=== PATIENT | male | born 1970 | race Caucasian/White ===

== ENCOUNTER 2018-06-20 09:00 | Day surgery (SDC) | payer OTHER ==
[~2018-06-20] VITALS: Ht 177.8 cm; Wt 98.0 kg
[~2018-06-20 09:00] MED LIST: AZULFIDINE500 MG PO; CYANOCOBAL1000 MCG/M IM; PLAQUENIL200 MG PO; VITAMIN D1000 UNI1 PO
--- NOTE | 2018-06-20 10:46 | NUR ---
PT IS RESTING, ALERT AND ORIENTED. HER HAS HAD MANY SCOPES AND EGD'S IN HIS LIFE. SEEMS AT EASE, NO REAL QUESTIONS. EXTENDED A BLESSING, WILL FOLLOW NEEDED
--- NOTE | 2018-06-20 12:47 | NUR ---
06/20/18 1247 Ivone Ochoa 1220 PATIENT ARRIVES TO PACU SLEEPING, AWAKENS WITH VERBAL STIMULI. RESP EVEN AND UNLABORED. DENIES PAIN OR NAUSEA. 1225 DR STEVENS AT BEDSIDE TALKING WITH PATIENT. 1230 PATIENT AWAKE, ANSWERS QUESTIONS APPROPRIATELY. DENIES PAIN OR NAUSEA. REPOSITIONS SELF TO BACK. HEAD OF BED ELEVATED. PATIENT DRINKING OJ. 1245 PATIENT CONTINUES TO DRINK JUICE. DENIES PAIN OR NAUSEA. RESP EVEN AND UNLABORED.
--- NOTE | 2018-06-20 22:37 | OR ---
[facility] [address], [place] [address] Signed DATE OF OPERATION: 06/20/2018 SURGEON: Deven Stevens MD PREOPERATIVE DIAGNOSES: 1. Longstanding gastroesophageal reflux, recurrent epigastric pain. 2. History of tubular adenoma at 40 cm, in 2016. POSTOPERATIVE DIAGNOSES: 1. Hiatal hernia with chronic esophagitis and mild gastritis. 2. Normal-appearing colon and ilium except for internal hemorrhoids. PROCEDURES PERFORMED: 1. Esophagogastroduodenoscopy with biopsy. 2. Total colonoscopy to cecum with intubation of ileum. ANESTHESIA: Intravenous sedation, fentanyl 200 mcg and Versed 12 mg (total). INDICATION: This 47-year-old white man is a patient of Braulio Anand DO at [facility]. The patient is known to me from the past having undergone colonoscopy in 2016, at which time he had a tubular adenoma at 40 cm, which was excised. He is having no colon symptoms at this time and has no family history of colon cancer. He does have recurrent reflux symptoms. He is taking no medications to manage at this time. He previously was on PPI medication with good result. He does not have dense distal dysphagia, though he does have some cervical dysphagia, possibly related to cervical spine problem that is well known at C4, C5, and C6. He is admitted at this time to undergo upper endoscopy and colonoscopy to better characterize the problem and for surveillance regarding the polyp. He understands the risks of bleeding, infection, perforation and wished to proceed. FINDINGS: Upper endoscopy demonstrated a hiatal hernia and chronic distal esophagitis without Rueda's epithelium and no sign of neoplasm proper. There was mild diffuse gastritis, but no ulceration or erosion. Duodenum is normal. On colonoscopy, there was no sign of recurrent polyp. No diverticula or colitis. Intubation of the ileum was accomplished without problem as well. DESCRIPTION OF PROCEDURE: Electronically Signed By: DEVEN STEVENS MD 06/20/18 2237 PATIENT NAME: RAHAT CLARK OPERATIVE REPORT DATE OF : 74 REPORT #: [id number] PHYSICIAN: DEVEN STEVENS MD PCP: GIRISH ANAND MD REPORT IS CONFIDENTIAL AND NOT TO BE RELEASED WITHOUT AUTHORIZATION [facility] [address], [place] [address] Signed The patient was brought to the endoscopy suite, given topical Hurricaine spray hypopharyngeal anesthesia, and placed in lateral decubitus position. With full cardiopulmonary monitoring, he was given intravenous sedation to the point of slurred speech and nystagmus. A bite block was placed. An Olympus video upper endoscope was passed in the hypopharynx. The vocal cords appeared normal. The scope was advanced to the esophagus throughout its length. It was normal, though there was mild chronic distal esophagitis, but no evidence of Rueda's epithelium. The scope was advanced to the stomach, which was insufflated with air. There was no sign of bile within the stomach. Rugal folds were normal as was the antral motility. The pylorus was normal. The scope was passed through it into the duodenum. The duodenum showed mild chronic inflammation, not much. Biopsies were obtained. The scope was withdrawn to the antrum where biopsies were obtained as there was a fine reticular diffuse gastritis. Retroflexed view showed a hiatal hernia, moderate in size. There was no sign of ulceration and scope was withdrawn to the distal esophagus after biopsies of the stomach for both RD and pathologic testing. The distal esophagus was biopsied. There was no evidence of Rueda's epithelium. Scope was further withdrawn and remaining esophagus was normal. Plans were then made for colonoscopy. Additional sedation was given as needed. Digital rectal examination showed internal and external hemorrhoidal changes. An Olympus video colonoscope was passed in the rectum and manipulated throughout the colon ultimately intubating the cecum itself. The ileocecal valve and appendiceal orifice were normal. Rather easily, the ileum could be intubated and passage of the scope with several centimeters into it showed it to be normal. Scope was withdrawn to the cecum, which also was normal. Careful withdrawal of scope showed no sign of other abnormality throughout the entire colon. Retroflexed view confirmed internal hemorrhoidal changes however. The scope was removed and the patient was taken to recovery room in good condition. CONCLUDING DIAGNOSES: 1. Hiatal hernia with chronic esophagitis, gastroesophageal reflux, and mild diffuse gastritis. We will recommend Prilosec 20 mg daily. 2. No evidence of recurrent colonic polyps and ileum was also normal. He does have internal hemorrhoidal changes, for which hemorrhoidal banding could be undertaken if bleeding should begin. PLAN: 1. Recommend Prilosec 20 mg daily. 2. Repeat colonoscopy in 10 years, sooner if clinically indicated. 3. High-fiber diet and if bleeding hemorrhoid should occur, consideration for hemorrhoidal banding in the office setting. Electronically Signed By: DEVEN STEVENS MD 06/20/18 3131 PATIENT NAME: RAHAT CLARK OPERATIVE REPORT DATE OF : 74 REPORT #: [id number] PHYSICIAN: DEVEN STEVENS MD PCP: GIRISH ANAND MD REPORT IS CONFIDENTIAL AND NOT TO BE RELEASED WITHOUT AUTHORIZATION [address] [address] Signed FOLLOWUP: He will return to the ongoing care by Dr. Girish Anand at [facility]. If there are adverse findings on pathology, we will see him back in the office as well. MD JACINDA Bonilla/TONIA /[id number] cc: Girish Anand MD Copies: GIRISH ANAND MD ~ Electronically Signed By: DEVEN STEVENS MD 06/20/18 2237 PATIENT NAME: RAHAT CLARK OPERATIVE REPORT DATE OF : 74 REPORT #: [id number] PHYSICIAN: DEVEN STEVENS MD PCP: GIRISH ANAND MD REPORT IS CONFIDENTIAL AND NOT TO BE RELEASED WITHOUT AUTHORIZATION
== END 2018-06-20 13:00 | disposition home or self-care (01) ==
LOC: DS 09:00 → OPS 09:00 → DS 10:00 → OPS 10:00
PROVIDERS: Surgery
PROC: 0DB78ZX Excision of Stomach, Pylorus, Via Natural or Artificial Opening Endoscopic, Diagnostic (ICD-10-PCS; 2018-06-20)
PROC: 0DB38ZX Excision of Lower Esophagus, Via Natural or Artificial Opening Endoscopic, Diagnostic (ICD-10-PCS; 2018-06-20)
PROC: 0DJD8ZZ Inspection of Lower Intestinal Tract, Via Natural or Artificial Opening Endoscopic (ICD-10-PCS; principal; 2018-06-20 10:00)
PROC: 0DB98ZX Excision of Duodenum, Via Natural or Artificial Opening Endoscopic, Diagnostic (ICD-10-PCS; 2018-06-20 10:00)
DX: Z12.11 Encounter for screening for malignant neoplasm of colon (principal); K64.8 Other hemorrhoids; K29.50 Unspecified chronic gastritis without bleeding; K44.9 Diaphragmatic hernia without obstruction or gangrene; K21.0 Gastro-esophageal reflux disease with esophagitis; G47.33 Obstructive sleep apnea (adult) (pediatric); E66.01 Morbid (severe) obesity due to excess calories; Z88.6 Allergy status to analgesic agent; Z86.010 Personal history of colon polyps; Z99.89 Dependence on other enabling machines and devices; Z68.33 Body mass index [BMI] 33.0-33.9, adult
CPT/HCPCS: 99153; G0500; J2250; J3010; J7120

== ENCOUNTER 2019-11-24 08:20 | Day surgery (SDC) | payer OTHER ==
[~2019-11-24] VITALS: Ht 177.8 cm; Wt 113.4 kg
[~2019-11-24 08:20] MED LIST changes: +OMEPRAZOLE20 M1 PO; +VENTOLIN HFA18 GM; +VITAMIN B-121000 MCG PO
--- NOTE | 2019-11-24 11:49 | NUR ---
11/24/19 1149 Sheets,Bertha 1140 PT ARRIVED TO PACU ON 10L VIA MASK, JAW THRUST NEEDED OFF AND ON TO MAINTAIN AIRWAY, SNORING NOTED OFF AND ON. VSS. 1148 PT WAKES TO PAINFUL STIMULI AND OPENS HIS EYES, PT REORIENTED TO PACU AND EASIOYL FALLS BACK TO SLEEP. O2 MASK REMOVED, SNORING NOTED.
--- NOTE | 2019-11-24 12:21 | NUR ---
YAYO 1210- PT ARRIVED FROM PACU. REPORT RECIEVED FROM RENAE Beach RN. PT RESTING IN LOCKED AND LOWERED BED, SIDE RAILS UP, CALL LIGHT WITHIN REACH. ICE WATER PROVIDED. NO FURTHER REQUESTS AT THIS TIME.
--- NOTE | 2019-11-24 13:15 | NUR ---
PT EDUCATED ON DISCHARGE CRITERIA. PT DENIES A NEED TO VOID AT THIS TIME. COFFEE AND WATER PROVIDED AND INCREASED INTAKE ENCOURAGED. PT RESTING IN LOCKED AND LOWERED BED, SIDE RAILS UP, CALL LIGHT WITHIN REACH. AT THE BEDSIDE. WILL CONTINUE TO MONITOR.
[2019-11-24] MEDS ORDERED: MOTRIN IB200 MG PO (13:41)
[2019-11-24] MEDS ORDERED: PERCOCET 5-3251 EACH PO (13:41)
--- NOTE | 2019-11-24 14:15 | NUR ---
PT UP TO THE RESTROOM. AMBULATES INDEPENDENTLY WITH NO COMPLICATIONS. PT UNABLE TO VOID. BLADDER SCAN PERFORMED. 79ML SCANNED. WILL CONTINUE TO MONITOR.
--- NOTE | 2019-11-24 14:27 | NUR ---
PT PROVIDED WITH MORE WATER, COFFEE, AND LUNCH CALLED DOWN FROM THE [facility].
--- NOTE | 2019-11-24 15:08 | NUR ---
PT EXPRESSED CONCERN OF DRESSING AFTER COUGHING. BLOOD NOTED ON LOWER HALF OF DRESSING. WILL CONTINUE TO MONITOR.
--- NOTE | 2019-11-24 15:20 | NUR ---
PT AMBULATES TO THE BATHROOM INDEPENDENTLY. VOIDED WITH NO COMPLICATIONS.
--- NOTE | 2019-11-24 15:30 | NUR ---
SMALL AMOUNT OF BLOOD LEAKED FROM DRESSING ON TO PT GOWN. DRESSING REINFORCED WITH OPSITE GAUZE AND TAPE. PT EDUCATED ON REINFORCING DRESSING AND WHEN TO CALL MD REGARDING DRAINAGE.
--- NOTE | 2019-11-24 15:55 | NUR ---
DISCHARGE TEACHING COMPLETE. PT [facility] [place] PT LEFT THE UNIT VIA WHEELCHAIR. PT TRANSFERRED FROM WHEELCHAIR TO VEHICLE INDEPENDENTLY WITH NO COMPLICATIONS. TRANSPORTATION PROVIDED BY .
--- NOTE | 2019-11-25 16:02 | OR ---
[facility] [address] [place], [place] [address] Signed DATE OF OPERATION: 11/24/2019 SURGEON: Deven Stevens MD PREOPERATIVE DIAGNOSES: 1. Symptomatic umbilical hernia. 2. Obesity. POSTOPERATIVE DIAGNOSES: 1. Symptomatic umbilical hernia. 2. Obesity. PROCEDURE: Repair of umbilical hernia with implantation of Prolene mesh in underlay technique. ANESTHESIA: General LMA, Deven oRmeo CRNA and local 10 mL of 0.25% Marcaine with epinephrine. INDICATION: This 49-year-old white man is a patient of Dr. Girish Anand of the [facility]. He is noted to have an umbilical hernia which is increasingly painful for him. Fascial defect was approximately 3 cm. Reduction of properitoneal fat is noted on clinical examination. He is admitted at this time to undergo repair of the hernia. He understands the risks of bleeding, infection, recurrence and so on. FINDINGS: The properitoneal fat was herniated. This was reduced entirely. A segment of Prolene mesh was secured in an underlay technique in the properitoneal space with an overlap of approximately 3 cm. Fascial reapproximation was undertaken transversely additionally with Prolene sutures and Prolene pledgets. DESCRIPTION OF PROCEDURE: The patient was brought to the operating room, given a general LMA anesthetic. Preoperative antibiotic Ancef was given. Sequential compression device stockings used and heparin subcutaneously administered. The abdomen was clipped and prepared with a chlorhexidine solution and draped sterilely. A curvilinear incision was made in the umbilical fold to the left of the umbilicus. Dissection carried through the subcutaneous tissue sharply. The bulky fatty herniated tissue was freed from the surrounding and overlying dermis of the umbilical skin with blunt electrocautery dissection ultimately demonstrating the fascial defect which was approximately 2-3 cm. Electronically Signed By: DEVEN STEVENS MD 11/25/19 1602 PATIENT NAME: RAHAT CLARK OPERATIVE REPORT DATE OF : 74 REPORT #: [id number] PHYSICIAN: DEVEN STEVENS MD PCP: GIRISH ANAND MD REPORT IS CONFIDENTIAL AND NOT TO BE RELEASED WITHOUT AUTHORIZATION [facility] [address] [place], [place] [address] Signed The properitoneal fat was bluntly from the fascia and the fat reduced to the properitoneal space. Using a combination of the digital technique and the blunt end of a DeBakey forceps, the fascial plane was created in the properitoneal space circumferentially nearly 3 cm in length. A segment of Prolene mesh was cut to a circular configuration and secured in the properitoneal space with interrupted 0 Prolene sutures with Prolene pledgets. The fascia was then transversely reapproximated and secured with interrupted 0 Prolene with Prolene pledgets as well. A 10 mL of 0.25% Marcaine with epinephrine was injected locally. The Andrew's layer and deep dermal layer reapproximated with interrupted 3-0 Vicryl and skin closed with running subcuticular 3-0 Vicryl. Steri-Strips were applied as well as a silver sponge dressing. The patient tolerated the procedure well, was ultimately extubated and transferred to the recovery room in good condition and suffered no complications. Sponge, needle, and instrument counts reported as correct x3. Deven Stevens MD JM/MODL /[id number] cc: Girish Anand MD Copies: GIRISH ANAND MD ~ Electronically Signed By: DEVEN STEVENS MD 11/25/19 1602 PATIENT NAME: RAHAT CLARK OPERATIVE REPORT DATE OF : 74 REPORT #: [id number] PHYSICIAN: DEVEN STEVENS MD PCP: GIRISH ANAND MD REPORT IS CONFIDENTIAL AND NOT TO BE RELEASED WITHOUT AUTHORIZATION
== END 2019-11-24 15:54 | disposition home or self-care (01) ==
LOC: DS 08:20
PROVIDERS: ATTEND Surgery
PROC: 0WUF0JZ Supplement Abdominal Wall with Synthetic Substitute, Open Approach (ICD-10-PCS; principal; 2019-11-24 10:15)
DX: K42.9 Umbilical hernia without obstruction or gangrene (principal); F32.9 Major depressive disorder, single episode, unspecified; K21.9 Gastro-esophageal reflux disease without esophagitis; G47.33 Obstructive sleep apnea (adult) (pediatric); E66.9 Obesity, unspecified; Z68.35 Body mass index [BMI] 35.0-35.9, adult; Z79.899 Other long term (current) drug therapy; Z87.891 Personal history of nicotine dependence
CPT/HCPCS: J0330; J0690; J1100; J1644; J1885; J2250; J2405; J2704; J2765; J3010; J7121

== ENCOUNTER 2021-02-27 14:00 | Emergency (ER) | payer OTHER ==
[~2021-02-27] VITALS: Ht 177.8 cm; Wt 113.4 kg
[~2021-02-27 14:00] MED LIST changes: +MOTRIN IB200 MG PO; +PERCOCET 5-3251 EACH PO
[2021-02-27] MEDS ORDERED: ONDANSETRON ODT8 MG PO (19:41)
== END 2021-02-27 19:59 | disposition home or self-care (01) ==
LOC: ED 14:00
DX: U07.1 COVID-19 (principal); K29.00 Acute gastritis without bleeding; Z88.6 Allergy status to analgesic agent; Z79.899 Other long term (current) drug therapy
CPT/HCPCS: 74177; 80048; 85025; 96374; 99284-25; C9803; J2405; J7030; Q9967; U0003

== ENCOUNTER 2021-03-28 11:52 | Day surgery (SDC) | payer OTHER ==
[~2021-03-28] VITALS: Ht 177.8 cm; Wt 114.5 kg
[~2021-03-28 11:52] MED LIST changes: +CYMBALTA20 MG PO; +ONDANSETRON ODT8 MG PO
--- NOTE | 2021-03-28 15:27 | NUR ---
03/28/21 1527 Alfredo,Bertha 1522 PT ARRIVED TO PACU ON 2L VIA NC, VSS. PT ENCOURAGED TO PASS GAS, PT DENIES PAIN AND NAUSEA. PT EASILY FALLS BACK TO SLEEP.
--- NOTE | 2021-03-29 10:34 | OR ---
[facility] [address] [place], [place] [address] Signed DATE OF OPERATION: 03/28/2021 SURGEON: Deven Stevens MD PREOPERATIVE DIAGNOSES: 1. Episodic rectal bleeding. 2. Gastroesophageal reflux. POSTOPERATIVE DIAGNOSES: 1. Hiatal hernia, distal esophagitis, no evidence of Rueda esophagus; antral gastritis. 2. Diminutive polyp of rectum (excised) and diverticulosis sigmoid. PROCEDURES: Esophagogastroduodenoscopy with biopsy and total colonoscopy to cecum with biopsy of rectum (polypectomy, cold morcellation technique). ANESTHESIA: Intravenous sedation, fentanyl 150 mcg and Versed 7 mg. INDICATION: This 50-year-old white man is a patient of Dr. Girish Anand. He is noted to have clinical gastroesophageal reflux symptoms, which are not well managed with PPI medication once daily. He had an upper GI that was performed showing "massive reflux and small hiatal hernia." Additionally, he has had episodes of bright red rectal bleeding. He is admitted to undergo upper endoscopy and colonoscopy. He understands the risks of bleeding, infection, perforation findings. Upper endoscopy confirmed a moderate-sized hiatal hernia as well as distal esophagitis, but no evidence of Rueda's epithelium. There was mild antral gastritis. No sign of ulcer. CLOtest was negative 30 minutes post procedure. Colonoscopy showed a very well prepped colon. Complete colonoscopy was undertaken of the cecum without question. There was a diminutive polyp of rectum and a few scattered diverticula of the sigmoid, but no other findings other than minimal diverticular changes. DESCRIPTION OF PROCEDURE: The patient was brought to the endoscopy suite and placed in the lateral decubitus position, given lidocaine hypopharyngeal topical anesthetic. He was given intravenous sedation to the point of slurred speech and nystagmus with full cardiopulmonary monitoring. A bite block was placed. An Olympus video upper endoscope was passed in Electronically Signed By: DEVEN STEVENS MD 03/29/21 1034 PATIENT NAME: RAHAT CLARK OPERATIVE REPORT DATE OF : 74 REPORT #: [id number] PHYSICIAN: DEVEN STEVENS MD PCP: GIRISH ANAND MD REPORT IS CONFIDENTIAL AND NOT TO BE RELEASED WITHOUT AUTHORIZATION [facility] [address] [place], [place] [address] Signed the hypopharynx. The vocal cords were normal. Scope was normal, except in the distal portion, where chronic inflammatory changes were noted. There was no sign of Ruead's epithelium or stricture or varices. The scope was passed to the stomach, which was insufflated with air. Rugal folds were normal. The antrum had mild chronic inflammation. The pylorus was normal. The scope was passed through into the duodenum, which was normal. Biopsies were taken of the duodenum to assess for celiac disease. The scope was withdrawn and then biopsies obtained for both RD and pathologic testing of the antrum. Retroflexed view undertaken showed a moderate-size hiatal hernia, easy withdrawal of the scope into the hiatal hernia. The scope was withdrawn to the distal esophagus, where biopsies were obtained and further withdrawn to the mid esophagus, which was normal appearing and also biopsies obtained. The scope was then removed. There were no other findings of concern. Additional sedation was given and digital rectal examination performed, which was normal. Olympus video colonoscope was passed in the rectum and manipulated throughout the colon ultimately intubating the cecum. The ileocecal valve and appendiceal orifice were normal. Excellent prep was noted. The scope was withdrawn from that point and examination throughout showed no sign of abnormality other than a few diverticula of the sigmoid and a diminutive polyp of the rectum, which was excised. Retroflexed view showed minimal hemorrhoidal change. There was no sign of bleeding. Scope was removed and the patient was taken to the recovery room in good condition. CONCLUDING DIAGNOSES: 1. Gastroesophageal reflux with hiatal hernia, not well managed with Prilosec daily. We would recommend b.i.d. dosing for the time being. Weight loss would be substantially beneficial to his reflux issue. I will review that with him. 2. Rectal bleeding probably related to intermittent hemorrhoidal bleeding; diverticulosis is minimal and diminutive polyp is certainly not accounting for bleeding. We would recommend high-fiber diet. PLAN: He will see us back in 4 to 6 weeks in the office and we will review these findings and assess his progress with change dosing of medication. MD JACINDA Bonilla/TONIA /[id number] Electronically Signed By: DEVEN STEVENS MD 03/29/21 1034 PATIENT NAME: RAHAT CLARK OPERATIVE REPORT DATE OF : 74 REPORT #: [id number] PHYSICIAN: DEVEN STEVENS MD PCP: GIRISH ANAND MD REPORT IS CONFIDENTIAL AND NOT TO BE RELEASED WITHOUT AUTHORIZATION [address] [address] Signed cc: Girish Anand MD Copies: GIRISH ANAND MD ~ Electronically Signed By: DEVEN STEVENS MD 03/29/21 1034 PATIENT NAME: RAHAT CLARK DANTE OPERATIVE REPORT DATE OF : 74 REPORT #: [id number] PHYSICIAN: DEVEN STEVENS MD PCP: GIRISH ANAND MD REPORT IS CONFIDENTIAL AND NOT TO BE RELEASED WITHOUT AUTHORIZATION
--- NOTE | 2021-03-30 13:45 | PATH ---
[facility] [address] [place], [place] [address] Signed SPECIMEN(S): A DUODENAL BIOPSY SPECIMEN(S): B ANTRUM BIOPSY SPECIMEN(S): C DISTAL ESOPHAGEAL BIOPSY SPECIMEN(S): D MID ESOPHAGEAL BIOPSY SPECIMEN(S): E SMALL RECTAL POLYP SPECIMEN SOURCE: A. DUODENAL BIOPSY B. ANTRUM BIOPSY C. DISTAL ESOPHAGEAL BIOPSY D. MID ESOPHAGEAL BIOPSY E. SMALL RECTAL POLYP CLINICAL HISTORY: Esophagogastroduodenoscopy/colonoscopy. Pre: GERD with esophagitis, history of adenomatous colon polyps, rectal hemorrhage. Post: Hiatal hernia, distal esophagitis, rectal polyp diverticulosis. FINAL PATHOLOGIC DIAGNOSIS: A. Duodenum, biopsy: - Duodenal mucosa with no histopathologic abnormality. - Negative for increased intraepithelial lymphocytes or villous blunting. - Negative for dysplasia or carcinoma. B. Stomach, antrum, biopsy: - Antral mucosa with no histopathologic abnormality. - Oxyntic mucosa with changes as seen with proton pump inhibitor (PPI) therapy. - Negative for Helicobacter organisms on HE stain. - Negative for dysplasia or carcinoma. C. Esophagus, distal, biopsy: - Squamous mucosa with no histopathologic abnormality. - Negative for intestinal metaplasia, dysplasia, or carcinoma. D. Esophagus, mid, biopsy: - Squamous mucosa with no histopathologic abnormality. - Negative for increased intraepithelial eosinophils. - Negative for intestinal metaplasia, dysplasia, or carcinoma. E. Rectum, small polyp, polypectomy: - Hyperplastic polyp. - Negative for dysplasia or carcinoma. NAL:cml:[id number] PATIENT NAME: RAHAT CLARK PATHOLOGY DATE OF : 74 REPORT #: [id number] PHYSICIAN: KELLEY ANGULO PCP: RICHARD ANAND MD REPORT IS CONFIDENTIAL AND NOT TO BE RELEASED WITHOUT AUTHORIZATION [facility] [address] [place], [place] [address] Signed MICROSCOPIC EXAMINATION: Histologic sections of all submitted blocks are examined by light microscopy. These findings, together with the gross examination, support the pathologic diagnosis. GROSS DESCRIPTION: Five specimens are received in five containers, labeled "SA." A. The specimen, labeled "SA, 1," and designated on the requisition "duodenum," is received in formalin and consists of two merino soft tissue fragments that measure 0.3 cm in greatest dimension. The specimen is entirely submitted in cassette (A1). B. The specimen, labeled "SA, 2," and designated on the requisition "antrum," is received in formalin and consists of two merino soft tissue fragments that measure 0.3 cm in greatest dimension. The specimen is entirely submitted in cassette (B1). C. The specimen, labeled "SA, 3," and designated on the requisition "distal esophagus," is received in formalin and consists of two mreino soft tissue fragments that measure 0.2-0.3 cm in greatest dimension. The specimen is entirely submitted in cassette (C1). D. The specimen, labeled "SA, 4," and designated on the requisition "middle esophagus," is received in formalin and consists of two merino soft tissue fragments that measure 0.3 cm in greatest dimension. The specimen is entirely submitted in cassette (D1). E. The specimen, labeled "SA, 5," and designated on the requisition "rectal polyp," is received in formalin and consists of one merino soft tissue fragment that measures 0.3 cm in greatest dimension. The specimen is entirely submitted in cassette (E1). AT (under the direct supervision of a pathologist) The Gross Description was prepared using a voice recognition system. The report was reviewed for accuracy; however, sound-alike word errors, addition and/or deletions may occur. If there is any question about this report, please contact Client Services. PERFORMING LABORATORY: The technical component was performed by [facility] [address] (Cotton Picker: Shira Davis MD; CLIA# [id number]). Professional interpretation was performed by [facility] [place], [address] [place], [place] [address] (CLIA# [id number]). Diagnostician: Karoline Hatch MD PATIENT NAME: RAHAT CLARK PATHOLOGY DATE OF : 74 REPORT #: [id number] PHYSICIAN: KELLEY ANGULO PCP: RICHARD ANAND MD REPORT IS CONFIDENTIAL AND NOT TO BE RELEASED WITHOUT AUTHORIZATION [facility] [address] [facility] [place] [address] Signed Pathologist Electronically Signed 03/30/2021 Copies: ~ PATIENT NAME: RAHAT CLARK PATHOLOGY DATE OF : 74 REPORT #: [id number] PHYSICIAN: KELLEY ANGULO PCP: RICHARD ANAND MD REPORT IS CONFIDENTIAL AND NOT TO BE RELEASED WITHOUT AUTHORIZATION
== END 2021-03-28 15:56 | disposition home or self-care (01) ==
LOC: OPS 11:52 → DS 11:57 → OPS 13:00 → DS 13:00 → OPS 15:56
PROVIDERS: ATTEND Surgery
PROC: 0DB78ZX Excision of Stomach, Pylorus, Via Natural or Artificial Opening Endoscopic, Diagnostic (ICD-10-PCS; 2021-03-28)
PROC: 0DB28ZX Excision of Middle Esophagus, Via Natural or Artificial Opening Endoscopic, Diagnostic (ICD-10-PCS; 2021-03-28)
PROC: 0DB58ZX Excision of Esophagus, Via Natural or Artificial Opening Endoscopic, Diagnostic (ICD-10-PCS; 2021-03-28)
PROC: 0DBP8ZX Excision of Rectum, Via Natural or Artificial Opening Endoscopic, Diagnostic (ICD-10-PCS; principal; 2021-03-28 13:00)
PROC: 0DB98ZX Excision of Duodenum, Via Natural or Artificial Opening Endoscopic, Diagnostic (ICD-10-PCS; 2021-03-28 13:00)
DX: K62.1 Rectal polyp (principal); K64.9 Unspecified hemorrhoids; K21.00 Gastro-esophageal reflux disease with esophagitis, without bleeding; K29.70 Gastritis, unspecified, without bleeding; K57.30 Diverticulosis of large intestine without perforation or abscess without bleeding; K44.9 Diaphragmatic hernia without obstruction or gangrene; G47.30 Sleep apnea, unspecified; Z86.010 Personal history of colon polyps; Z88.6 Allergy status to analgesic agent
CPT/HCPCS: 99153; G0500; J2250; J3010; J7121

== ENCOUNTER 2024-04-01 11:48 | Emergency (ER) | payer OTHER ==
[~2024-04-01] VITALS: Ht 177.8 cm; Wt 112.9 kg
[2024-04-01] MEDS ORDERED: PROTONIX20 MG PO (12:00)
[2024-04-01 13:12] VITALS: BP 138/99
== END 2024-04-01 13:21 | disposition home or self-care (01) ==
LOC: ED 11:48
DX: H61.22 Impacted cerumen, left ear (principal); K21.9 Gastro-esophageal reflux disease without esophagitis; Z20.818 Contact with and (suspected) exposure to other bacterial communicable diseases; Z88.6 Allergy status to analgesic agent; Z79.899 Other long term (current) drug therapy
CPT/HCPCS: 99283